=== PATIENT | female | born 1940 | race Caucasian/White ===

== ENCOUNTER 2022-01-31 09:39 | Outpatient (CLI) | payer MEDICARE, OTHER ==
--- NOTE | 2022-01-31 13:59 | DEXA Report ---
PROCEDURE: Dexa Spine and/or Hip INDICATIONS: POST MENOPAUSAL TECHNIQUE: Dual energy x-ray absorptiometry (DXA) was performed on a [employer] System. Regions measur ed are the AP Spine, femoral neck, and if needed forearm. COMPARISON: None. FINDINGS: Lumbar Spine: Bone Mineral Density 1.025 g/cm/cm,T score -1.3, osteopenia Right Femoral Neck: Bone Mineral Density 0.695 g/cm/cm, T score -2.5, osteopenia Right Hip: Bone Mineral Density 0.708 g/cm/cm,T score -2.4, to be near IMPRESSION: Osteoporosis on the basis of left femoral neck bone mineral density. Patients with diagnosis of osteoporosis or osteopenia should have regular bone mineral density assess ment. For those eligible for Medicare, routine testing is allowed once every 2 years. Testing frequ ency can be increased for patients who have rapidly progressing disease or for those who are receivin g medical therapy to restore bone mass. Reviewed by: Soham Mi MD on 01/31/2022 12:58 PM [facility] Approved by: Soham Mi MD on 01/31/2022 12:58 PM [facility] Station ID: [id number]
== END 2022-01-31 09:40 | disposition home or self-care (01) ==
LOC: DI 09:39
PROVIDERS: ATTEND Internal Medicine
DX: M81.0 Age-related osteoporosis without current pathological fracture (principal)

== ENCOUNTER 2022-03-29 17:28 | Outpatient (CLI) | payer MEDICARE, OTHER | END 2022-03-29 17:29 | disposition critical access hospital (66) | LOC: EMS 17:28 | DX: R42 Dizziness and giddiness (principal); R55 Syncope and collapse; R56.9 Unspecified convulsions | CPT/HCPCS: A0425; A0429 ==

== ENCOUNTER 2022-03-29 17:54 | Emergency (ER) | payer MEDICARE, OTHER ==
[2022-03-29 18:14] LABS: BASOPHILS # (AUTO) 0.1 10^3/uL (0.0-0.1); EOSINOPHILS # (AUTO) 0.2 10^3/uL (0.0-0.7); EOSINOPHILS % (AUTO) 3.8 %; HCT - HEMATOCRIT 32.4 % (37.0-47.0); LYMPHOCYTES # (AUTO) 1.6 10^3/uL (1.5-3.5); LYMPHOCYTES % (AUTO) 25.9 %; MEAN CORPUSCULAR HEMOGLOBIN 28.3 pg (27.0-31.0); MEAN CORPUSCULAR HGB CONC 30.9 g/dL (32.0-36.0); MEAN CORPUSCULAR VOLUME 91.8 fL (81.0-99.0); MEAN PLATELET VOLUME 9.9 fL (7.9-10.8); MONOCYTES # (AUTO) 0.6 10^3/uL (0.0-1.0); MONOCYTES % (AUTO) 9.4 %; NEUTROPHILS # (AUTO) 3.7 10^3/uL (1.5-6.6); NEUTROPHILS % (AUTO) 59.6 %; PLT - PLATELET COUNT 233 10^3/uL (130-450); RED BLOOD COUNT 3.53 10^6/uL (4.20-5.40); RED CELL DISTRIBUTION WIDTH 13.2 % (12.0-15.0); WHITE BLOOD COUNT 6.3 x10^3/uL (4.8-10.8)
--- NOTE | 2022-03-29 18:16 | ED Physician Documentation ---
History of Present Illness - Stated complaint Stated Complaint: DIZZINESS/NEAR SYNCOPE - Chief complaint Chief Complaint: Neuro - Additonal information Additional information: Patient is a poor historian. History is provided from EMS at the scene. 81-year-old female who has a previous history of Mnire's disease, congestive heart heart failure, hyperthyroidism and depression presents to the emergency department for evaluation of a near syncopal episode. Patient reports that for much of the last week she has had a cough which she describes as productive. She was taking her Pomeranian's out for a walk when she began to feel faint, lightheaded and dizzy. She nearly collapsed. Patient denies that she was having chest pain or shortness of air The patient does live at [facility] and staff reported that the patient was alert but began having jerking movements of both her upper extremities that were described as convulsions. Patient states that she has had these movements in the past but denies a seizure history. For EMS the patient was alert and oriented x4. Nonfocal. Blood sugar was 86 on scene. Normal sinus rhythm. And reviewed the patient's medications she does not appear to be anticoagulated. Ancillary history is obtained from the patient's daughter and son-in-law at the bedside. They report that anytime she has had near syncope and these convulsion like shakes have been associated with urinary tract infections though the patient denies any symptoms of such. Review of Systems Constitutional: denies: Fever, Chills Cardiac: denies: Chest pain / pressure, Palpitations Respiratory: reports: Reviewed and negative : reports: Reviewed and negative Skin: reports: Reviewed and negative Neurologic: reports: Near syncope. 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 - Present Medications Home Medications: Ambulatory Orders Medication Instructions Recorded Confirmed Acetaminophen [Acetaminophen Extra 1,000 mg PO Q6HR PRN 03/29/22 03/29/22 Strength] Atorvastatin Calcium 40 mg PO HS 03/29/22 03/29/22 Cefpodoxime Proxetil [Vantin] 100 mg PO Q12H #14 tablet 03/29/22 Furosemide [Lasix] 20 mg PO BID 03/29/22 03/29/22 Levothyroxine [Synthroid] 75 mcg PO QDAC 03/29/22 03/29/22 Losartan Potassium 25 mg PO DAILY 03/29/22 03/29/22 Melatonin/Pyridoxine [Melatonin 5 1 each PO HS 03/29/22 03/29/22 mg Tablet] Tizanidine HCl 4 mg PO TID PRN 03/29/22 03/29/22 Venlafaxine HCl [Effexor Xr] 150 mg PO DAILY 03/29/22 03/29/22 - Allergies Allergies/Adverse Reactions: Allergies Allergy/AdvReac Type Severity Reaction Status Date / Time felodipine Allergy Hives Verified 03/29/22 18:21 Penicillins Allergy Hives Verified 03/29/22 18:21 sulfamethoxazole Allergy Hives Verified 03/29/22 18:21 [From Bactrim] trimethoprim [From Bactrim] Allergy Hives Verified 03/29/22 18:21 verapamil Allergy Hives Verified 03/29/22 18:21 - Social History Does the pt smoke?: No Smoking Status: Never smoker Does the pt drink ETOH?: No Does the pt have substance abuse?: No PD ED PE NORMAL - General General: Alert and oriented X 3, No acute distress, Well developed/nourished - HEENT HEENT: Atraumatic, Moist mucous membranes - Neck Neck: Supple, no meningeal sign, No adenopathy - Cardiac Cardiac: RRR, No murmur - Respiratory Respiratory: No respiratory distress, Clear bilaterally - Abdomen Abdomen: Normal bowel sounds, Soft - Derm Derm: Normal color, Warm and dry, No rash - Extremities Extremities: No deformity, No tenderness to palpate, Normal ROM s pain - Neuro Neuro: Alert and oriented X 3, 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 She was awake during this.) Eye Opening: Spontaneous Motor: Obeys Commands Verbal: Oriented GCS Score: 15 Results - Vitals Vitals: Vital Signs - 24 hr 03/29/22 03/29/22 03/29/22 18:06 18:17 19:01 Temperature 37.1 C Heart Rate 66 65 Heart Rate [ 90 Sitting] Heart Rate [ 92 Standing] Heart Rate [ 88 Supine] Respiratory 15 15 Rate Blood Pressure 158/80 H 158/80 H Blood Pressure 182/85 H [Sitting] Blood Pressure 180/88 H [Standing] Blood Pressure 144/71 H [Supine] O2 Saturation 100 100 Oxygen O2 Source Room air - EKG (time done) 1803 Rate: Rate (enter#) (71) Rhythm: NSR [place]: Normal Intervals: Normal [place] QRS: Normal Ischemia: Normal ST segments Compare to prior EKG: Old EKG unavailable Computer interpretation: Agree with computer - Labs Labs: Laboratory Tests 03/29/22 03/29/22 03/29/22 18:08 18:08 18:08 WBC 6.3 RBC 3.53 L Hgb 10.0 L Hct 32.4 L MCV 91.8 MCH 28.3 MCHC 30.9 L RDW 13.2 Plt Count 233 MPV 9.9 Neut # (Auto) 3.7 Lymph # (Auto) 1.6 [place] # (Auto) 0.6 Eos # (Auto) 0.2 Baso # (Auto) 0.1 Absolute Nucleated RBC 0.00 Nucleated RBC % 0.0 Sodium 140 Potassium 3.7 Chloride 105 Carbon Dioxide 25 Anion Gap 10.0 BUN 27 H Creatinine 1.0 Estimated GFR (MDRD) 53 L Glucose 87 Calcium 9.0 Total Bilirubin 0.6 AST 19 ALT 15 Alkaline Phosphatase 74 Troponin I High Sens 3.0 B-Natriuretic Peptide Total Protein 7.0 Albumin 3.7 Globulin 3.3 Albumin/Globulin Ratio 1.1 Lipase 44 TSH Free T4 Urine Color Urine Clarity Urine pH Ur Specific [place] Urine Protein Urine Glucose (UA) Urine Ketones Urine Occult Blood Urine Nitrite Urine Bilirubin Urine Urobilinogen Ur Leukocyte Esterase Urine RBC Urine WBC Ur Squamous Epith Cells Urine Bacteria Ur Microscopic Review Urine Culture Comments Nasal Adenovirus (PCR) Nasal B. parapertussis DNA (PCR) Nasal Coronavir 229E PCR Nasal Coronavir HKU1 PCR Nasal Coronavir NL63 PCR Nasal Coronavir OC43 PCR Nasal Enterovir/Rhinovir PCR Nasal Influenza B PCR Nasal Influenza A PCR Nasal Parainfluen 1 PCR Nasal Parainfluen 2 PCR Nasal Parainfluen 3 PCR Nasal Parainfluen 4 PCR Nasal RSV (PCR) Nasal B.pertussis DNA PCR Nasal C.pneumoniae (PCR) [place] Human Metapneumo PCR Nasal M.pneumoniae (PCR) Nasal SARS-CoV-2 (PCR) 03/29/22 03/29/22 03/29/22 18:08 18:08 18:24 WBC RBC Hgb Hct MCV MCH MCHC RDW Plt Count MPV Neut # (Auto) Lymph # (Auto) [place] # (Auto) Eos # (Auto) Baso # (Auto) Absolute Nucleated RBC Nucleated RBC % Sodium Potassium Chloride Carbon Dioxide Anion Gap BUN Creatinine Estimated GFR (MDRD) Glucose Calcium Total Bilirubin AST ALT Alkaline Phosphatase Troponin I High Sens B-Natriuretic Peptide 89 Total Protein Albumin Globulin Albumin/Globulin Ratio Lipase TSH 3.20 Free T4 0.95 Urine Color Urine Clarity Urine pH Ur Specific [place] Urine Protein Urine Glucose (UA) Urine Ketones Urine Occult Blood Urine Nitrite Urine Bilirubin Urine Urobilinogen Ur Leukocyte Esterase Urine RBC Urine WBC Ur Squamous Epith Cells Urine Bacteria Ur Microscopic Review Urine Culture Comments Nasal Adenovirus (PCR) NOT DETECTED Nasal B. parapertussis DNA (PCR) NOT DETECTED Nasal Coronavir 229E PCR NOT DETECTED Nasal Coronavir HKU1 PCR NOT DETECTED Nasal Coronavir NL63 PCR NOT DETECTED Nasal Coronavir OC43 PCR NOT DETECTED Nasal Enterovir/Rhinovir PCR NOT DETECTED Nasal Influenza B PCR NOT DETECTED Nasal Influenza A PCR NOT DETECTED Nasal Parainfluen 1 PCR NOT DETECTED Nasal Parainfluen 2 PCR NOT DETECTED Nasal Parainfluen 3 PCR NOT DETECTED Nasal Parainfluen 4 PCR NOT DETECTED Nasal RSV (PCR) NOT DETECTED Nasal B.pertussis DNA PCR NOT DETECTED Nasal C.pneumoniae (PCR) NOT DETECTED Me[place]ia Human Metapneumo PCR NOT DETECTED Nasal M.pneumoniae (PCR) NOT DETECTED Nasal SARS-CoV-2 (PCR) NOT DETECTED 03/29/22 19:03 WBC RBC Hgb Hct MCV MCH MCHC RDW Plt Count MPV Neut # (Auto) Lymph # (Auto) [place] # (Auto) Eos # (Auto) Baso # (Auto) Absolute Nucleated RBC Nucleated RBC % Sodium Potassium Chloride Carbon Dioxide Anion Gap BUN Creatinine Estimated GFR (MDRD) Glucose Calcium Total Bilirubin AST ALT Alkaline Phosphatase Troponin I High Sens B-Natriuretic Peptide Total Protein Albumin Globulin Albumin/Globulin Ratio Lipase TSH Free T4 Urine Color YELLOW Urine Clarity CLEAR Urine pH 6.5 Ur Specific [place] 1.010 Urine Protein NEGATIVE Urine Glucose (UA) NEGATIVE Urine Ketones NEGATIVE Urine Occult Blood NEGATIVE Urine Nitrite NEGATIVE Urine Bilirubin NEGATIVE Urine Urobilinogen 0.2 (NORMAL) Ur Leukocyte Esterase MODERATE H Urine RBC 0-5 Urine WBC 11-25 H Ur Squamous Epith Cells FEW Squamous Urine Bacteria Few Ur Microscopic Review INDICATED Urine Culture Comments INDICATED Nasal Adenovirus (PCR) Nasal B. parapertussis DNA (PCR) Nasal Coronavir 229E PCR Nasal Coronavir HKU1 PCR Nasal Coronavir NL63 PCR Nasal Coronavir OC43 PCR Nasal Enterovir/Rhinovir PCR Nasal Influenza B PCR Nasal Influenza A PCR Nasal Parainfluen 1 PCR Nasal Parainfluen 2 PCR Nasal Parainfluen 3 PCR Nasal Parainfluen 4 PCR Nasal RSV (PCR) Nasal B.pertussis DNA PCR Nasal C.pneumoniae (PCR) [place]ia Human Metapneumo PCR Nasal M.pneumoniae (PCR) Nasal SARS-CoV-2 (PCR) - Rads (name of study) cxr Radiology: Final report received (No acute cardiopulmonary finding) PD Medical Decision Making - ED course Complexity details: reviewed results, re-evaluated patient, considered differential, d/w patient, d/w family ED course: 81-year-old female presents to the emergency department for evaluation of a near syncopal episode that occurred after taking her dogs for a walk. When she was at her care facility she began to feel as though she would faint. She did sit down and did not lose consciousness but then she began to have a brief period of awake jerking movements of her upper arms. The patient and her son-in-law report to me that she has had these in the past with urinary tract infections. Here in the emergency department the patient presents very well. She has no focal deficits. We did obtain an EKG which was nonischemic. We also obtained a CBC, electrolytes and a troponin that were all essentially unremarkable. Here in the emergency department the patient has been able to ambulate steadily in the halls without syncope. Her orthostatic blood pressures are negative. We did obtain a urinalysis which is frankly suggestive of infection. A culture is pending but in the interim she will be started on Vantin. This prescription will be sent to the [facility] in [place]. At this time I suspect the cause of her symptoms is a simple cystitis that would be an atypical presentation for such. However clinically the patient does not appear to be having a stroke, acute coronary syndrome, neither does she have an acute abdomen. At this time she is discharged home in stable condition Departure - Departure Disposition: 01 Home, Self Care Clinical Impression: Near syncope Condition: Stable Record reviewed to determine appropriate education?: Yes Prescriptions: Cefpodoxime Proxetil [Vantin] 100 mg PO Q12H #14 tablet Comments: Mary came to the emergency department because at her care facility she had a near fainting episode. This was followed by a brief period of observed shaking in which she remained awake. Here in the ER she does not appear to be having any seizures. She also does not appear to be having any symptoms consistent with a stroke. Because of the near fainting episode we did obtain an EKG that showed no findings to suggest a heart attack. Her labs are all essentially normal. You had discussed with us that in the past when she has had the similar symptoms its been due to a urinary tract infection. Though she does not have the typical symptoms of urinary tract infection such as fevers, urinary urgency or frequency her urine today does suggest infection and therefore we will start her on a short course of antibiotics. Her first dose of antibiotic was given tonight here in the emergency department. This is called Vantin also known as cefpodoxime. It should be given to her twice daily for the next week. This prescription has been electronically sent to the [facility] in [place]. Please discuss this ED visit with her primary care provider. She should return to the ER if she has worsening symptoms, develops any fevers, has uncontrolled abdominal pain, chest pain or vomiting.
[2022-03-29 18:27] LABS: ALBUMIN 3.7 g/dL (3.2-5.5); ALBUMIN/GLOBULIN RATIO 1.1 (1.0-2.2); BILIRUBIN,TOTAL 0.6 mg/dL (0.2-1.0); POTASSIUM 3.7 mmol/L (3.5-5.0)
--- NOTE | 2022-03-29 18:38 | XRAY Report ---
PROCEDURE: Chest 1 View X-Ray INDICATIONS: Chest Pain TECHNIQUE: One view of the chest was acquired. COMPARISON: None. FINDINGS: Surgical changes and devices: None. Lungs and pleura: No pleural effusions or pneumothorax. Lungs are clear. Mediastinum: Mediastinal contours appear normal. Heart size is normal. Bones and chest wall: No suspicious bony lesions. Overlying soft tissues appear unremarkable. IMPRESSION: No acute cardiopulmonary findings Reviewed by: Kapil Bach MD on 03/29/2022 5:37 PM [place] Approved by: Kapil Bach MD on 03/29/2022 5:37 PM [place] Station ID: [id number]
[2022-03-29 18:58] LABS: THYROID STIMULATING HORMONE 3.2 uIU/mL (0.34-5.60)
[2022-03-29 19:00] LABS: FREE T4 (FREE THYROXINE) 0.95 ng/dL (0.58-1.64)
[2022-03-29 19:21] LABS: BILIRUBIN,URINE NEGATIVE (NEGATIVE); GLUCOSE, URINE (UA) NEGATIVE (NEGATIVE); KETONES,URINE (UA) NEGATIVE (NEGATIVE); LEUKOCYTE ESTERASE, URINE MODERATE (NEGATIVE); NITRITE,URINE NEGATIVE (NEGATIVE); OCCULT BLOOD,URINE NEGATIVE (NEGATIVE); PH,URINE 6.5 PH (5.0-7.5); PROTEIN,URINE NEGATIVE (NEGATIVE); UROBILINOGEN,URINE 0.2 (NORMAL) E.U./dL (NORMAL)
[2022-03-29 19:23] LABS: CLARITY,URINE CLEAR (CLEAR)
[2022-03-29 19:31] LABS: B. PARAPERTUSSIS- RESP PCR PAN NOT DETECTED; B. PERTUSSIS- RESP PCR PANEL NOT DETECTED; C. PNEUMONIAE- RESP PCR PANEL NOT DETECTED; CORONAVIRUS 229E-RESP PCR NOT DETECTED; CORONAVIRUS HKU1-RESP PCR NOT DETECTED; CORONAVIRUS NL63-RESP PCR NOT DETECTED; CORONAVIRUS OC43-RESP PCR NOT DETECTED; HUMAN METAPNEUMOVIRUS NOT DETECTED; INFLUENZA A- RESP PCR PANEL NOT DETECTED; INFLUENZA B - RESP PCR PANEL NOT DETECTED; M. PNEUMONIAE- RESP PCR PANEL NOT DETECTED; PARAINFLUENZA VIRUS 1 NOT DETECTED; PARAINFLUENZA VIRUS 2 NOT DETECTED; PARAINFLUENZA VIRUS 3 NOT DETECTED; PARAINFLUENZA VIRUS 4 NOT DETECTED; RHINOVIRUS/ENTEROVIRUS NOT DETECTED; RSV- RESP PCR PANEL NOT DETECTED; SARS-CoV-2 -RESP PCR PANEL NOT DETECTED
[2022-03-29 19:31] LABS: BACTERIA,URINE Few /HPF (None Seen); RBC,URINE 0-5 /HPF (0-5); SQUAMOUS EPITHELIAL CELL,UR FEW Squamous (<= Few)
[2022-03-29] MEDS ORDERED: CEFPODOXIME PROXETIL 100 MG TABLET PO STA (19:44)
[2022-03-29 20:07] VITALS: BP 153/81
== END 2022-03-29 20:24 | disposition home or self-care (01) ==
LOC: EDUNIT# → ED 17:54
DX: R55 Syncope and collapse (principal); Z20.822 Contact with and (suspected) exposure to COVID-19
CPT/HCPCS: 36415; 71045; 80053; 81001; 83690; 83880; 84439; 84443; 84484; 85025; 87086; 87633; 93005; 99284; A9270; 81003

== ENCOUNTER 2022-04-15 10:52 | Outpatient (CLI) | payer MEDICARE, OTHER | END 2022-04-15 23:59 | disposition critical access hospital (66) | LOC: EMS 10:52 | DX: R06.00 Dyspnea, unspecified (principal); R07.9 Chest pain, unspecified; R53.1 Weakness; R19.7 Diarrhea, unspecified | CPT/HCPCS: A0425; A0429 ==

== ENCOUNTER 2022-04-15 11:19 | Emergency (ER) | payer MEDICARE, OTHER ==
[2022-04-15 11:54] LABS: BASOPHILS # (AUTO) 0.1 10^3/uL (0.0-0.1); BASOPHILS % (AUTO) 0.9 %; EOSINOPHILS # (AUTO) 0.2 10^3/uL (0.0-0.7); EOSINOPHILS % (AUTO) 3.1 %; HCT - HEMATOCRIT 31.8 % (37.0-47.0); HGB - HEMOGLOBIN 9.4 g/dL (12.0-16.0); LYMPHOCYTES # (AUTO) 1.1 10^3/uL (1.5-3.5); LYMPHOCYTES % (AUTO) 18.2 %; MEAN CORPUSCULAR HEMOGLOBIN 27.7 pg (27.0-31.0); MEAN CORPUSCULAR HGB CONC 29.6 g/dL (32.0-36.0); MEAN CORPUSCULAR VOLUME 93.8 fL (81.0-99.0); MEAN PLATELET VOLUME 10.4 fL (7.9-10.8); MONOCYTES # (AUTO) 0.6 10^3/uL (0.0-1.0); MONOCYTES % (AUTO) 9.4 %; NEUTROPHILS % (AUTO) 68.2 %; PLT - PLATELET COUNT 259 10^3/uL (130-450); RED BLOOD COUNT 3.39 10^6/uL (4.20-5.40); RED CELL DISTRIBUTION WIDTH 13.2 % (12.0-15.0); WHITE BLOOD COUNT 5.8 x10^3/uL (4.8-10.8)
[2022-04-15 12:05] LABS: ALBUMIN 3.7 g/dL (3.2-5.5); ALBUMIN/GLOBULIN RATIO 1.2 (1.0-2.2); BILIRUBIN,TOTAL 0.6 mg/dL (0.2-1.0); CALCIUM 9.1 mg/dL (8.5-10.3); TOTAL PROTEIN 6.7 g/dL (6.7-8.2)
[2022-04-15 12:40] LABS: BILIRUBIN,URINE NEGATIVE (NEGATIVE); GLUCOSE, URINE (UA) NEGATIVE (NEGATIVE); KETONES,URINE (UA) NEGATIVE (NEGATIVE); LEUKOCYTE ESTERASE, URINE NEGATIVE (NEGATIVE); NITRITE,URINE NEGATIVE (NEGATIVE); OCCULT BLOOD,URINE NEGATIVE (NEGATIVE); PH,URINE 6.5 PH (5.0-7.5); PROTEIN,URINE NEGATIVE (NEGATIVE); UROBILINOGEN,URINE 0.2 (NORMAL) E.U./dL (NORMAL)
[2022-04-15 12:46] LABS: CLARITY,URINE CLEAR (CLEAR)
[2022-04-15] MEDS ORDERED: SODIUM CHLORIDE 0.9% 500 ML IV STA (12:48)
[2022-04-15] MEDS ORDERED: SODIUM CHLORIDE 0.9% 1,000 ML IV STA ×2 (12:48)
--- NOTE | 2022-04-15 13:03 | ED Physician Documentation ---
History of Present Illness - Stated complaint Stated Complaint: FEM - Chief complaint Chief Complaint: General - History obtained from History obtained from: Patient, EMS - History of Present Illness Timing: Today Pain level max: 2 Pain level now: 0 - Additonal information Additional information: 81-year-old female presents to the emergency department stating that she had chest pain earlier this morning at around 6 AM. She states that she felt weak and had shortness of breath. She states that her right arm hurt but her right arm always hurts. It did not hurt anymore than usual. She states that it lasted for about 15 to 20 minutes. She states that she has felt normal since that time. Currently is fully asymptomatic. Nothing makes it better or worse. She did have diarrhea 2 days ago, states none now. She was on antibiotics about 2 weeks ago for UTI. No fever. No chills. Has a history of congestive heart failure. 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 - Present Medications Home Medications: Ambulatory Orders Medication Instructions Recorded Confirmed Acetaminophen [Acetaminophen Extra 1,000 mg PO Q6HR PRN 03/29/22 03/29/22 Strength] Atorvastatin Calcium 40 mg PO HS 03/29/22 03/29/22 Cefpodoxime Proxetil [Vantin] 100 mg PO Q12H #14 tablet 03/29/22 Furosemide [Lasix] 20 mg PO BID 03/29/22 03/29/22 Levothyroxine [Synthroid] 75 mcg PO QDAC 03/29/22 03/29/22 Losartan Potassium 25 mg PO DAILY 03/29/22 03/29/22 Melatonin/Pyridoxine [Melatonin 5 1 each PO HS 03/29/22 03/29/22 mg Tablet] Tizanidine HCl 4 mg PO TID PRN 03/29/22 03/29/22 Venlafaxine HCl [Effexor Xr] 150 mg PO DAILY 03/29/22 03/29/22 - Allergies Allergies/Adverse Reactions: Allergies Allergy/AdvReac Type Severity Reaction Status Date / Time felodipine Allergy Hives Verified 04/15/22 11:27 Penicillins Allergy Hives Verified 04/15/22 11:27 sulfamethoxazole Allergy Hives Verified 04/15/22 11:27 [From Bactrim] trimethoprim [From Bactrim] Allergy Hives Verified 04/15/22 11:27 verapamil Allergy Hives Verified 04/15/22 11:27 - Social History Does the pt smoke?: No Smoking Status: Never smoker Does the pt drink ETOH?: No Does the pt have substance abuse?: No PD ED PE NORMAL - Vitals Vital signs reviewed: Yes - General General: Alert and oriented X 3, No acute distress - HEENT HEENT: Moist mucous membranes - Neck Neck: Supple, no meningeal sign - Cardiac Cardiac: RRR, Strong equal pulses - Respiratory Respiratory: No respiratory distress, Clear bilaterally - Abdomen Abdomen: Soft, Non tender, Non distended - Back Back: No spinal TTP - Derm Derm: Warm and dry - Extremities Extremities: No edema, No calf tenderness / cord - Neuro Neuro: Alert and oriented X 3 Results - Vitals Vitals: Vital Signs - 24 hr 04/15/22 04/15/22 04/15/22 11:23 11:49 12:48 Temperature 36.7 C Heart Rate 68 63 70 Respiratory 18 22 18 Rate Blood Pressure 156/83 H 139/79 H 141/84 H O2 Saturation 99 98 99 04/15/22 15:11 Temperature Heart Rate 68 Respiratory 20 Rate Blood Pressure 147/78 H O2 Saturation 97 Oxygen O2 Source Room air - EKG (time done) 1300 Rate: Rate (enter#) (64) Rhythm: NSR [place]: Normal Intervals: Normal [place] QRS: Normal Ischemia: Normal ST segments - Labs Labs: Laboratory Tests 04/15/22 04/15/22 04/15/22 11:47 11:47 11:47 WBC 5.8 RBC 3.39 L Hgb 9.4 L Hct 31.8 L MCV 93.8 MCH 27.7 MCHC 29.6 L RDW 13.2 Plt Count 259 MPV 10.4 Neut # (Auto) 4.0 Lymph # (Auto) 1.1 L [place] # (Auto) 0.6 Eos # (Auto) 0.2 Baso # (Auto) 0.1 Absolute Nucleated RBC 0.00 Nucleated RBC % 0.0 Sodium 141 Potassium 4.0 Chloride 104 Carbon Dioxide 28 Anion Gap 9.0 BUN 22 H Creatinine 1.0 Estimated GFR (MDRD) 53 L Glucose 89 Calcium 9.1 Total Bilirubin 0.6 AST 18 ALT 12 Alkaline Phosphatase 88 Troponin I High Sens 3.4 B-Natriuretic Peptide Total Protein 6.7 Albumin 3.7 Globulin 3.0 Albumin/Globulin Ratio 1.2 Lipase 41 Urine Color Urine Clarity Urine pH Ur Specific [place] Urine Protein Urine Glucose (UA) Urine Ketones Urine Occult Blood Urine Nitrite Urine Bilirubin Urine Urobilinogen Ur Leukocyte Esterase Ur Microscopic Review Urine Culture Comments 04/15/22 04/15/22 11:47 12:10 WBC RBC Hgb Hct MCV MCH MCHC RDW Plt Count MPV Neut # (Auto) Lymph # (Auto) [place] # (Auto) Eos # (Auto) Baso # (Auto) Absolute Nucleated RBC Nucleated RBC % Sodium Potassium Chloride Carbon Dioxide Anion Gap BUN Creatinine Estimated GFR (MDRD) Glucose Calcium Total Bilirubin AST ALT Alkaline Phosphatase Troponin I High Sens B-Natriuretic Peptide 97 Total Protein Albumin Globulin Albumin/Globulin Ratio Lipase Urine Color YELLOW Urine Clarity CLEAR Urine pH 6.5 Ur Specific [place] <=1.005 Urine Protein NEGATIVE Urine Glucose (UA) NEGATIVE Urine Ketones NEGATIVE Urine Occult Blood NEGATIVE Urine Nitrite NEGATIVE Urine Bilirubin NEGATIVE Urine Urobilinogen 0.2 (NORMAL) Ur Leukocyte Esterase NEGATIVE Ur Microscopic Review NOT INDICATED Urine Culture Comments NOT INDICATED - Rads (name of study) Chest x-ray Radiology: Final report received, See rad report PD Medical Decision Making - ED course Complexity details: reviewed results, re-evaluated patient, considered differential, d/w patient ED course: 81-year-old female presents to the emergency department with chest pain earlier today. Also generalized weakness earlier today. Fully asymptomatic in the emergency department. CBC does show anemia, but this is chronic and unchanged. Her ER abdominal panel is negative other than a mildly elevated BUN. Troponin is negative. BNP is negative. Chest x-ray does not show any acute abnormalities. Urinalysis does not show any infection. She continues to be asymptomatic in the emergency department. Unclear etiology of her earlier symptoms. We will have her follow-up with her doctor for further care. Patient counseled regarding signs and symptoms for which I believe and urgent re- evaluation would be necessary. Patient with good understanding of and agreement to plan and is comfortable going home at this time This document was made in part using voice recognition software. While efforts are made to proofread this document, sound alike and grammatical errors may occur. Departure - Departure Disposition: 01 Home, Self Care Clinical Impression: Chest pain Qualifiers: Chest pain type: unspecified Qualified Code(s): R07.9 - Chest pain, unspecified Dyspnea Qualifiers: Dyspnea type: unspecified Qualified Code(s): R06.00 - Dyspnea, unspecified Condition: Good Instructions: ED Chest Pain Atypical Unkn Cause, ED Dyspnea Shortness of Breath Follow-Up: Zane Boogie MD [Primary Care Provider] - Within 1 week Comments: Your testing does not show any acute abnormalities today. Please follow-up with your doctor for further care. Return if you worsen. Discharge Date/Time: 04/15/22 15:38
--- NOTE | 2022-04-15 13:26 | XRAY Report ---
PROCEDURE: Chest 1 View X-Ray INDICATIONS: chest pain TECHNIQUE: One view of the chest was acquired. COMPARISON: None. FINDINGS: Surgical changes and devices: None. Lungs and pleura: No pleural effusions or pneumothorax. Lungs are clear. Mediastinum: Mediastinal contours appear normal. Heart size is enlarged. Bones and chest wall: No suspicious bony lesions. Overlying soft tissues appear unremarkable. IMPRESSION: No acute cardiopulmonary pathology. Reviewed by: Gustavo Calix MD on 04/15/2022 1:25 PM [facility] Approved by: Gustavo Calix MD on 04/15/2022 1:25 PM [facility] Station ID: [id number]
[2022-04-15 15:13] VITALS: BP 147/78
== END 2022-04-15 15:38 | disposition home or self-care (01) ==
LOC: ED 11:19
DX: R07.9 Chest pain, unspecified (principal); R06.00 Dyspnea, unspecified; Z79.899 Other long term (current) drug therapy; I50.9 Heart failure, unspecified
CPT/HCPCS: 36415; 80053; 81001; 81003; 83690; 83880; 84484; 85025; 87086; 93005; 99283; 99284

== ENCOUNTER 2022-06-05 10:29 | Outpatient (CLI) | payer MEDICARE, OTHER | END 2022-06-05 23:59 | disposition critical access hospital (66) | LOC: EMS 10:29 | DX: R04.0 Epistaxis (principal); K62.5 Hemorrhage of anus and rectum; R42 Dizziness and giddiness | CPT/HCPCS: A0425; A0429 ==

== ENCOUNTER 2022-06-05 10:58 | Emergency (ER) | payer MEDICARE, OTHER ==
[2022-06-05 11:04] VITALS: BP 154/84
[2022-06-05 12:01] LABS: BASOPHILS # (AUTO) 0.1 10^3/uL (0.0-0.1); BASOPHILS % (AUTO) 0.9 %; EOSINOPHILS # (AUTO) 0.3 10^3/uL (0.0-0.7); EOSINOPHILS % (AUTO) 4.4 %; HGB - HEMOGLOBIN 9.2 g/dL (12.0-16.0); LYMPHOCYTES # (AUTO) 1.1 10^3/uL (1.5-3.5); MEAN CORPUSCULAR HEMOGLOBIN 27.7 pg (27.0-31.0); MEAN CORPUSCULAR HGB CONC 29.7 g/dL (32.0-36.0); MEAN CORPUSCULAR VOLUME 93.4 fL (81.0-99.0); MEAN PLATELET VOLUME 11.1 fL (7.9-10.8); MONOCYTES # (AUTO) 0.6 10^3/uL (0.0-1.0); MONOCYTES % (AUTO) 9.9 %; NEUTROPHILS # (AUTO) 3.7 10^3/uL (1.5-6.6); NEUTROPHILS % (AUTO) 64.6 %; PLT - PLATELET COUNT 201 10^3/uL (130-450); RED BLOOD COUNT 3.32 10^6/uL (4.20-5.40); RED CELL DISTRIBUTION WIDTH 13.8 % (12.0-15.0); WHITE BLOOD COUNT 5.7 x10^3/uL (4.8-10.8)
[2022-06-05 12:05] LABS: PT - PROTHROMBIN TIME 11.5 secs (9.9-12.6)
--- NOTE | 2022-06-05 12:07 | ED Physician Documentation ---
History of Present Illness - Stated complaint Stated Complaint: BLEEDING - Chief complaint Chief Complaint: General - History obtained from History obtained from: Patient - History of Present Illness Timing: How many weeks ago (several) Pain level max: 0 Pain level now: 0 - Additonal information Additional information: 81-year-old female presents to the emergency department stating that she has had intermittent nosebleeds for the past several weeks. They seem to resolved after a couple of minutes. Denies any trauma. Is not on blood thinners. Nothing seems to make them better or worse. No fevers, chills or recent illnesses. No dyspnea or syncope. She states she did feel mildly lightheaded earlier today but feels normal now. 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 - Present Medications Home Medications: Ambulatory Orders Medication Instructions Recorded Confirmed Acetaminophen [Acetaminophen Extra 1,000 mg PO Q6HR PRN 03/29/22 03/29/22 Strength] Atorvastatin Calcium 40 mg PO HS 03/29/22 03/29/22 Cefpodoxime Proxetil [Vantin] 100 mg PO Q12H #14 tablet 03/29/22 Furosemide [Lasix] 20 mg PO BID 03/29/22 03/29/22 Levothyroxine [Synthroid] 75 mcg PO QDAC 03/29/22 03/29/22 Losartan Potassium 25 mg PO DAILY 03/29/22 03/29/22 Melatonin/Pyridoxine [Melatonin 5 1 each PO HS 03/29/22 03/29/22 mg Tablet] Tizanidine HCl 4 mg PO TID PRN 03/29/22 03/29/22 Venlafaxine HCl [Effexor Xr] 150 mg PO DAILY 03/29/22 03/29/22 - Allergies Allergies/Adverse Reactions: Allergies Allergy/AdvReac Type Severity Reaction Status Date / Time felodipine Allergy Hives Verified 06/05/22 11:04 Penicillins Allergy Hives Verified 06/05/22 11:04 sulfamethoxazole Allergy Hives Verified 06/05/22 11:04 [From Bactrim] trimethoprim [From Bactrim] Allergy Hives Verified 06/05/22 11:04 verapamil Allergy Hives Verified 06/05/22 11:04 - Social History Does the pt smoke?: No Smoking Status: Never smoker Does the pt drink ETOH?: No Does the pt have substance abuse?: No PD ED PE NORMAL - Vitals Vital signs reviewed: Yes - General General: Alert and oriented X 3, No acute distress - HEENT HEENT: PERRL, Moist mucous membranes, Other (Small amount of dried blood in the left nare. Otherwise normal exam) - Neck Neck: Supple, no meningeal sign - Cardiac Cardiac: RRR, Strong equal pulses - Respiratory Respiratory: No respiratory distress, Clear bilaterally - Derm Derm: Warm and dry - Neuro Neuro: Alert and oriented X 3 Results - Vitals Vitals: Vital Signs - 24 hr 06/05/22 11:01 Temperature 37.2 C Heart Rate 65 Respiratory 20 Rate Blood Pressure 154/84 H O2 Saturation 100 Oxygen O2 Source Room air - Labs Labs: Laboratory Tests 06/05/22 06/05/22 06/05/22 11:54 11:54 11:54 WBC 5.7 RBC 3.32 L Hgb 9.2 L Hct 31.0 L MCV 93.4 MCH 27.7 MCHC 29.7 L RDW 13.8 Plt Count 201 MPV 11.1 H Neut # (Auto) 3.7 Lymph # (Auto) 1.1 L [place] # (Auto) 0.6 Eos # (Auto) 0.3 Baso # (Auto) 0.1 Absolute Nucleated RBC 0.00 Nucleated RBC % 0.0 PT 11.5 INR 1.0 APTT 32.7 Sodium 139 Potassium 3.3 L Chloride 105 Carbon Dioxide 29 Anion Gap 5.0 L BUN 19 Creatinine 0.9 Estimated GFR (MDRD) 60 L Glucose 87 Calcium 8.6 Total Bilirubin 0.3 AST 19 ALT 13 Alkaline Phosphatase 87 Total Protein 6.8 Albumin 3.9 Globulin 2.9 Albumin/Globulin Ratio 1.3 PD Medical Decision Making - ED course Complexity details: reviewed results, considered differential, d/w patient ED course: Patient with recurrent epistaxis. She has chronic anemia, hemoglobin unchanged. She is not on blood thinners. No active bleeding here. Can use Vaseline in the nose to help moisten the area. Recommend that she follow-up with her doctor for further care. Patient counseled regarding signs and symptoms for which I believe and urgent re-evaluation would be necessary. Patient with good understanding of and agreement to plan and is comfortable going home at this time This document was made in part using voice recognition software. While efforts are made to proofread this document, sound alike and grammatical errors may occur. Departure - Departure Disposition: 01 Home, Self Care Clinical Impression: Epistaxis, Chronic anemia Condition: Good Instructions: ED Nosebleed Follow-Up: Zane Boogie MD [Primary Care Provider] - Within 1 week Comments: Please follow-up with your doctor for further care. Please return if you worsen. As we discussed, you can try applying Vaseline inside your nose to help moisten the area. Saline nasal sprays can be used as well. Your blood counts are stable from your prior laboratory testing. Discharge Date/Time: 06/05/22 12:24
[2022-06-05 12:12] LABS: ALBUMIN 3.9 g/dL (3.2-5.5); ALBUMIN/GLOBULIN RATIO 1.3 (1.0-2.2); BILIRUBIN,TOTAL 0.3 mg/dL (0.2-1.0); CALCIUM 8.6 mg/dL (8.5-10.3); CREATININE 0.9 mg/dL (0.4-1.0); POTASSIUM 3.3 mmol/L (3.5-5.0); TOTAL PROTEIN 6.8 g/dL (6.7-8.2)
[2022-06-05 12:13] LABS: PARTIAL THROMBOPLASTIN TIME 32.7 secs (24.9-33.3)
== END 2022-06-05 12:24 | disposition home or self-care (01) ==
LOC: ED 10:58
DX: R04.0 Epistaxis (principal); D64.89 Other specified anemias
CPT/HCPCS: 36415; 80053; 85025; 85610; 85730; 99283

== ENCOUNTER 2022-07-03 12:03 | Outpatient (CLI) | payer MEDICARE, OTHER ==
--- NOTE | 2022-07-03 15:32 | CT Report ---
PROCEDURE: HEAD WO INDICATIONS: SEIZSURE TECHNIQUE: Noncontrast 4.5 mm thick angled axial sections acquired from the foramen magnum to the vertex. For r adiation dose reduction, the following was used: automated exposure control, adjustment of mA and/or kV according to patient size. COMPARISON: None. FINDINGS: Image quality: Excellent. The ventricular system and cortical sulci demonstrate atrophy, consistent for patient's stated age. There are areas of hypodensity in the periventricular and subcortical white matter. There is no acut e intra or extra-axial fluid collection. No acute hemorrhage, mass lesion or midline shift. Brainst em is unremarkable. Globes are symmetrical. Sinuses are aerated. Osseous structures are intact. IMPRESSION: 1. No acute intracranial process. 2. Moderate atrophy and chronic microvascular ischemic changes. Reviewed by: Vianey Carranza MD on 07/03/2022 3:30 PM PDT Approved by: Vianey Carranza MD on 07/03/2022 3:30 PM PDT Station ID: [id number]
== END 2022-07-03 12:04 | disposition home or self-care (01) ==
LOC: DI 12:03
PROVIDERS: ATTEND Internal Medicine
DX: R56.9 Unspecified convulsions (principal); G31.89 Other specified degenerative diseases of nervous system; I67.82 Cerebral ischemia; I50.9 Heart failure, unspecified; I51.7 Cardiomegaly
CPT/HCPCS: 93306

== ENCOUNTER 2022-07-03 12:03 | Outpatient (CLI) | payer MEDICARE, OTHER | END 2022-07-03 12:04 | disposition home or self-care (01) | LOC: DI 12:03 | PROVIDERS: ATTEND Internal Medicine | DX: I50.9 Heart failure, unspecified (principal); I51.7 Cardiomegaly | CPT/HCPCS: 93306 ==

== ENCOUNTER 2022-12-31 13:57 | Outpatient (CLI) | payer MEDICARE, OTHER | END 2022-12-31 13:58 | disposition critical access hospital (66) | LOC: EMS 13:57 | DX: R56.9 Unspecified convulsions (principal) | CPT/HCPCS: A0425; A0429 ==

== ENCOUNTER 2022-12-31 14:27 | Emergency (ER) | payer MEDICARE, OTHER ==
[2022-12-31 15:03] LABS: BASOPHILS % (AUTO) 0.8 %; EOSINOPHILS # (AUTO) 0.2 10^3/uL (0.0-0.7); EOSINOPHILS % (AUTO) 4.2 %; HCT - HEMATOCRIT 26.8 % (37.0-47.0); HGB - HEMOGLOBIN 7.9 g/dL (12.0-16.0); LYMPHOCYTES # (AUTO) 0.9 10^3/uL (1.5-3.5); LYMPHOCYTES % (AUTO) 19.5 %; MEAN CORPUSCULAR HEMOGLOBIN 25.3 pg (27.0-31.0); MEAN CORPUSCULAR HGB CONC 29.5 g/dL (32.0-36.0); MEAN CORPUSCULAR VOLUME 85.9 fL (81.0-99.0); MEAN PLATELET VOLUME 9.7 fL (7.9-10.8); MONOCYTES # (AUTO) 0.5 10^3/uL (0.0-1.0); MONOCYTES % (AUTO) 9.6 %; NEUTROPHILS # (AUTO) 3.1 10^3/uL (1.5-6.6); NEUTROPHILS % (AUTO) 65.7 %; PLT - PLATELET COUNT 236 10^3/uL (130-450); RED BLOOD COUNT 3.12 10^6/uL (4.20-5.40); RED CELL DISTRIBUTION WIDTH 15.9 % (12.0-15.0); WHITE BLOOD COUNT 4.8 x10^3/uL (4.8-10.8)
--- NOTE | 2022-12-31 15:33 | ED Physician Documentation ---
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 Today she states that she had a shaking episode that lasted for a few minutes. She was fully awake and conscious during the entire event. No postictal period. She did receive her COVID and influenza vaccines. Her family apparently called the emergency department prior to her arrival and said that she often has UTIs when she has pseudoseizures. They are requesting she be checked for UTI. Patient has no fever, no chills. No cough. No congestion. No abdominal pain. Did not fall. Did not strike her head. No head, neck, back pain. Patient is fully asymptomatic. Review of Systems Constitutional: denies: Fever, Chills Respiratory: denies: Cough GI: denies: Abdominal Pain, Nausea, Vomiting, Diarrhea : denies: Dysuria, Frequency, Hesitancy Skin: denies: Rash Musculoskeletal: denies: Neck pain, Back pain Neurologic: denies: Focal weakness, Numbness, Confused, Altered mental status, Headache, Head injury, LOC PD PAST MEDICAL HISTORY - Past Medical History Cardiovascular: Congestive heart failure, High cholesterol Neuro: Other (pseudoseizures) Endocrine/Autoimmune: HyPOthyroidism Psych: Depression - Past Surgical History Past Surgical History: Yes Ortho: Knee replacement /VP 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: Hysterectomy - Present Medications Home Medications: Ambulatory Orders Medication Instructions Recorded Confirmed Acetaminophen [Acetaminophen Extra 1,000 mg PO Q6HR PRN 03/29/22 03/29/22 Strength] Atorvastatin Calcium 40 mg PO HS 03/29/22 03/29/22 Cefpodoxime Proxetil [Vantin] 100 mg PO Q12H #14 tablet 03/29/22 Furosemide [Lasix] 20 mg PO BID 03/29/22 03/29/22 Levothyroxine [Synthroid] 75 mcg PO QDAC 03/29/22 03/29/22 Losartan Potassium 25 mg PO DAILY 03/29/22 03/29/22 Melatonin/Pyridoxine [Melatonin 5 1 each PO HS 03/29/22 03/29/22 mg Tablet] Tizanidine HCl 4 mg PO TID PRN 03/29/22 03/29/22 Venlafaxine HCl [Effexor Xr] 150 mg PO DAILY 03/29/22 03/29/22 Cefpodoxime Proxetil [Vantin] 100 mg PO Q12H #10 tablet 12/31/22 - Allergies Allergies/Adverse Reactions: Allergies Allergy/AdvReac Type Severity Reaction Status Date / Time felodipine Allergy Hives Verified 12/31/22 14:39 Penicillins Allergy Hives Verified 12/31/22 14:39 sulfamethoxazole Allergy Hives Verified 12/31/22 14:39 [From Bactrim] trimethoprim [From Bactrim] Allergy Hives Verified 12/31/22 14:39 verapamil Allergy Hives Verified 12/31/22 14:39 - Social History Does the pt smoke?: No Smoking Status: Never smoker Does the pt drink ETOH?: No Does the pt have substance abuse?: No PD ED PE NORMAL - Vitals Vital signs reviewed: Yes - General General: Alert and oriented X 3, No acute distress - HEENT HEENT: Moist mucous membranes - Neck Neck: Supple, no meningeal sign - Cardiac Cardiac: RRR, Strong equal pulses - Respiratory Respiratory: No respiratory distress, Clear bilaterally - Abdomen Abdomen: Soft, Non tender, Non distended - Derm Derm: Warm and dry - Extremities Extremities: No edema, No calf tenderness / cord - Neuro Neuro: Alert and oriented X 3, 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, No motor deficit, No sensory deficit, Normal speech Eye Opening: Spontaneous Motor: Obeys Commands Verbal: Oriented GCS Score: 15 - Psych Psych: Normal mood, Normal affect Results - Vitals Vitals: Vital Signs - 24 hr 12/31/22 12/31/22 12/31/22 14:36 15:04 15:40 Temperature 36.4 C L Heart Rate 64 68 81 Respiratory 18 17 19 Rate Blood Pressure 148/75 H 94/28 L 180/84 H O2 Saturation 98 98 100 12/31/22 12/31/22 16:14 16:38 Temperature 36.5 C Heart Rate 65 71 Respiratory 17 18 Rate Blood Pressure 143/87 H 146/86 H O2 Saturation 97 97 Oxygen O2 Source Room air - Labs Labs: Laboratory Tests 12/31/22 12/31/22 12/31/22 14:55 14:55 15:30 WBC 4.8 RBC 3.12 L Hgb 7.9 L Hct 26.8 L MCV 85.9 MCH 25.3 L MCHC 29.5 L RDW 15.9 H Plt Count 236 MPV 9.7 Neut # (Auto) 3.1 Lymph # (Auto) 0.9 L [place] # (Auto) 0.5 Eos # (Auto) 0.2 Baso # (Auto) 0.0 Absolute Nucleated RBC 0.00 Nucleated RBC % 0.0 Sodium 141 Potassium 3.8 Chloride 106 Carbon Dioxide 31 Anion Gap 4.0 L BUN 23 H Creatinine 1.1 Estimated GFR (MDRD) 48 L Glucose 88 Calcium 8.7 Total Bilirubin 0.3 AST 12 ALT 7 L Alkaline Phosphatase 97 Total Protein 6.5 Albumin 3.8 Globulin 2.7 Albumin/Globulin Ratio 1.4 Lipase 22 Urine Color YELLOW Urine Clarity HAZY Urine pH 6.5 Ur Specific Sullivan <=1.005 Urine Protein NEGATIVE Urine Glucose (UA) NEGATIVE Urine Ketones NEGATIVE Urine Occult Blood NEGATIVE Urine Nitrite NEGATIVE Urine Bilirubin NEGATIVE Urine Urobilinogen 0.2 (NORMAL) Ur Leukocyte Esterase LARGE H Urine RBC 0-5 Urine WBC 11-25 H Ur Squamous Epith Cells FEW Squamous Urine Bacteria Moderate H Ur Microscopic Review INDICATED Urine Culture Comments INDICATED PD Medical Decision Making - ED course Complexity details: reviewed results, re-evaluated patient, considered differential, d/w patient ED course: Patient is asymptomatic in the emergency department has chronic anemia. This is not a significant drop from her baseline. She does have a UTI and we will treat her for this. She is not short of breath. No hypotension. No fevers. No evidence of sepsis. She has known pseudoseizures. She was conscious through the entire event and recalls the entire event. No postictal period. Patient will follow-up with her PCP for further care. Patient counseled regarding signs and symptoms for which I believe and urgent re-evaluation would be necessary. Patient with good understanding of and agreement to plan and is comfortable going home at this time This document was made in part using voice recognition software. While efforts are made to proofread this document, sound alike and grammatical errors may occur. Departure - Departure Disposition: 01 Home, Self Care Clinical Impression: Seizure-like activity, Chronic anemia UTI (urinary tract infection) Qualifiers: Urinary tract infection type: acute cystitis Hematuria presence: without hematuria Qualified Code(s): N30.00 - Acute cystitis without hematuria Condition: Good Instructions: ED UTI Cystitis Female Follow-Up: your,doctor in 1 week [Other] Prescriptions: Cefpodoxime Proxetil [Vantin] 100 mg PO Q12H #10 tablet Comments: Your prescription was sent to [facility] in [place]. Please follow-up with your doctor for further care. Please return if you worsen. You are being treated for UTI today. Forms: PCP List Discharge Date/Time: 12/31/22 17:28
[2022-12-31 15:38] LABS: ALBUMIN 3.8 g/dL (3.2-5.5); ALBUMIN/GLOBULIN RATIO 1.4 (1.0-2.2); BILIRUBIN,TOTAL 0.3 mg/dL (0.2-1.0); CALCIUM 8.7 mg/dL (8.5-10.3); CREATININE 1.1 mg/dL (0.6-1.3); POTASSIUM 3.8 mmol/L (3.5-4.5); TOTAL PROTEIN 6.5 g/dL (6.4-8.9)
[2022-12-31 16:10] LABS: BILIRUBIN,URINE NEGATIVE (NEGATIVE); GLUCOSE, URINE (UA) NEGATIVE (NEGATIVE); KETONES,URINE (UA) NEGATIVE (NEGATIVE); LEUKOCYTE ESTERASE, URINE LARGE (NEGATIVE); NITRITE,URINE NEGATIVE (NEGATIVE); OCCULT BLOOD,URINE NEGATIVE (NEGATIVE); PH,URINE 6.5 PH (5.0-7.5); PROTEIN,URINE NEGATIVE (NEGATIVE); UROBILINOGEN,URINE 0.2 (NORMAL) E.U./dL (NORMAL)
[2022-12-31 16:11] LABS: CLARITY,URINE HAZY (CLEAR)
[2022-12-31 16:18] VITALS: O2SAT 97
[2022-12-31 16:22] LABS: BACTERIA,URINE Moderate /HPF (None Seen); RBC,URINE 0-5 /HPF (0-5); SQUAMOUS EPITHELIAL CELL,UR FEW Squamous (<= Few)
[2022-12-31] MEDS ORDERED: CEFPODOXIME PROXETIL 100 MG TABLET PO STA (16:28)
[2022-12-31 16:45] VITALS: BP 146/86
== END 2022-12-31 17:28 | disposition home or self-care (01) ==
LOC: EDUNIT# → ED 14:27
DX: N30.00 Acute cystitis without hematuria (principal); R56.9 Unspecified convulsions; D64.9 Anemia, unspecified; I50.9 Heart failure, unspecified; E78.00 Pure hypercholesterolemia, unspecified; E03.9 Hypothyroidism, unspecified; Z87.440 Personal history of urinary (tract) infections; Z79.899 Other long term (current) drug therapy
CPT/HCPCS: 36415; 80053; 81001; 83690; 85025; 87086; 87181; 99283; 99284; A9270; 81003

== ENCOUNTER 2023-02-10 08:57 | Outpatient (CLI) | payer MEDICARE, OTHER | END 2023-02-10 08:58 | disposition critical access hospital (66) | LOC: EMS 08:57 | DX: R42 Dizziness and giddiness (principal); R55 Syncope and collapse; R11.0 Nausea; I95.9 Hypotension, unspecified | CPT/HCPCS: A0425; A0427 ==

== ENCOUNTER 2023-02-10 09:21 | Emergency (ER) | payer MEDICARE, OTHER ==
--- NOTE | 2023-02-10 09:34 | ED Physician Documentation ---
PD HPI SYNCOPE - Stated complaint Stated Complaint: DIZZINESS - History obtained from History obtained from: Patient, EMS - History of Present Illness Witnessed: Witnessed Timing - onset: How many hours ago Duration: Seconds Preceding symptoms: Light headed, Generalized weakness. No: Headache, Chest pain Associated symptoms: Other (feeling of aches, malaise and some cough for 1-2 days. Today with lightheaded feeling after breakfast. Witnessed to have brief near syncope/syncope.). No: Headache, Chest pain, Abdominal pain Contributing factors: Other (recent URI symptoms for a day or so.). No: Recent med change, Decreased PO intake Injury occurred: No: Fell, Head injury Review of Systems Constitutional: reports: Chills, Myalgias. denies: Fever Nose: reports: Congestion Throat: denies: Sore throat Cardiac: denies: Chest pain / pressure Respiratory: reports: Cough GI: denies: Abdominal Pain PD PAST MEDICAL HISTORY - Past Medical History Cardiovascular: Congestive heart failure, High cholesterol Neuro: Other (pseudoseizures) Endocrine/Autoimmune: HyPOthyroidism Psych: Depression - Past Surgical History Past Surgical History: Yes Ortho: Knee replacement /[employer]: Hysterectomy - Present Medications Home Medications: Ambulatory Orders Medication Instructions Recorded Confirmed Acetaminophen [Acetaminophen Extra 1,000 mg PO Q6HR PRN 03/29/22 03/29/22 Strength] Atorvastatin Calcium 40 mg PO HS 03/29/22 03/29/22 Cefpodoxime Proxetil [Vantin] 100 mg PO Q12H #14 tablet 03/29/22 Furosemide [Lasix] 20 mg PO BID 03/29/22 03/29/22 Levothyroxine [Synthroid] 75 mcg PO QDAC 03/29/22 03/29/22 Losartan Potassium 25 mg PO DAILY 03/29/22 03/29/22 Melatonin/Pyridoxine [Melatonin 5 1 each PO HS 03/29/22 03/29/22 mg Tablet] Tizanidine HCl 4 mg PO TID PRN 03/29/22 03/29/22 Venlafaxine HCl [Effexor Xr] 150 mg PO DAILY 03/29/22 03/29/22 Cefpodoxime Proxetil [Vantin] 100 mg PO Q12H #10 tablet 12/31/22 - Allergies Allergies/Adverse Reactions: Allergies Allergy/AdvReac Type Severity Reaction Status Date / Time felodipine Allergy Hives Verified 12/31/22 14:39 Penicillins Allergy Hives Verified 12/31/22 14:39 sulfamethoxazole Allergy Hives Verified 12/31/22 14:39 [From Bactrim] trimethoprim [From Bactrim] Allergy Hives Verified 12/31/22 14:39 verapamil Allergy Hives Verified 12/31/22 14:39 - Social History Does the pt smoke?: No Smoking Status: Never smoker Does the pt drink ETOH?: No Does the pt have substance abuse?: No PD ED PE NORMAL - Vitals Vital signs reviewed: Yes - General General: Alert and oriented X 3, No acute distress, Well developed/nourished - HEENT HEENT: Pharynx benign - Neck Neck: Supple, no meningeal sign, No adenopathy - Cardiac Cardiac: RRR, No murmur - Respiratory Respiratory: Clear bilaterally - Abdomen Abdomen: Soft, Non tender - Derm Derm: Normal color, Warm and dry - Extremities Extremities: Normal ROM s pain, No edema, No calf tenderness / cord - Neuro Neuro: Alert and oriented X 3, No motor deficit, Normal speech Results - Vitals Vitals: Vital Signs - 24 hr 02/10/23 02/10/23 02/10/23 09:28 10:02 10:55 Temperature 36.7 C Heart Rate 65 62 64 Respiratory 18 18 16 Rate Blood Pressure 102/58 L 99/54 L 107/60 O2 Saturation 98 96 95 02/10/23 12:30 Temperature Heart Rate 68 Respiratory 16 Rate Blood Pressure 117/75 O2 Saturation 96 Oxygen O2 Source Room air - EKG (time done) 09:30 EKG releavant findings:: EKG personally interpreted by author of this note. Relevant findings are: Rate: Rate (enter#) (64) Rhythm: NSR [place]: Normal Intervals: Normal DC QRS: Normal Ischemia: Normal ST segments. No: ST elevation c/w ischemia, ST depression - Labs Labs: Laboratory Tests 02/10/23 02/10/23 02/10/23 09:49 09:49 09:58 WBC 4.8 RBC 2.92 L Hgb 7.1 L Hct 24.3 L MCV 83.2 MCH 24.3 L MCHC 29.2 L RDW 15.7 H Plt Count 230 MPV 9.7 Neut # (Auto) 2.9 Lymph # (Auto) 1.0 L [place] # (Auto) 0.5 Eos # (Auto) 0.4 Baso # (Auto) 0.1 Absolute Nucleated RBC 0.00 Nucleated RBC % 0.0 Sodium 139 Potassium 3.7 Chloride 106 Carbon Dioxide 30 Anion Gap 3.0 L BUN 20 Creatinine 1.0 Estimated GFR (MDRD) 53 L Glucose 114 H Calcium 8.5 Magnesium 2.0 Total Bilirubin 0.3 AST 11 ALT 7 L Alkaline Phosphatase 97 Troponin I High Sens 2.5 Total Protein 5.8 L Albumin 3.4 Globulin 2.4 Albumin/Globulin Ratio 1.4 Lipase 24 Nasal Adenovirus (PCR) NOT DETECTED Nasal B. parapertussis DNA (PCR) NOT DETECTED Nasal Coronavir 229E PCR NOT DETECTED Nasal Coronavir HKU1 PCR NOT DETECTED Nasal Coronavir NL63 PCR NOT DETECTED Nasal Coronavir OC43 PCR NOT DETECTED Nasal Enterovir/Rhinovir PCR DETECTED A Nasal Influenza B PCR NOT DETECTED Nasal Influenza A PCR NOT DETECTED Nasal Parainfluen 1 PCR NOT DETECTED Nasal Parainfluen 2 PCR NOT DETECTED Nasal Parainfluen 3 PCR NOT DETECTED Nasal Parainfluen 4 PCR NOT DETECTED Nasal RSV (PCR) NOT DETECTED Nasal B.pertussis DNA PCR NOT DETECTED Nasal C.pneumoniae (PCR) NOT DETECTED Mejia Human Metapneumo PCR NOT DETECTED Nasal M.pneumoniae (PCR) NOT DETECTED Nasal SARS-CoV-2 (PCR) NOT DETECTED - Rads (name of study) chest xray Relevant Findings:: Prelim report reviewed, EMP independent interpretation of test (no acute cardiopulmonary abnormality noted. ) PD Medical Decision Making - ED course Complexity details: reviewed results (Hgb 7.1 and previous was 7.9 in Dec, with 9.0 in May. No apparent acute blood loss. Appears iron deficient likely. I think currrent fainting is BP resonse to new viral illness. Feeling okay with IV fluids here. Defer transfusion of blood as not meeting guidleine for it. ), considered differential (has had mild URI symptoms for just 1-2 days. [place]rell lightheaded then fainted Has recovered okay. Noted to have mildly low BP on EMS arrival. Feeling at baseline on arrival. ), d/w patient Departure - Departure Disposition: 01 Home, Self Care Clinical Impression: Syncope Condition: Stable Record reviewed to determine appropriate education?: Yes Instructions: ED Viral Syndrome Comments: Your blood test shows some anemia. Your blood count is close to where it was on the most recent blood test. Close to where it was on the most recent blood test. This certainly contributes to your general level of fatigue and tiredness. I do not see an iron supplement per se in your med list. It would make sense to be on 1. I think your current symptoms of feverish and fatigue and the lightheaded episode this morning are related to a current viral illness. Your no swab test was positive for rhinovirus which is a relatively common virus but can act flulike for sure. Stay well-hydrated. You are likely feel ill to some degree for the next 5 or 6 days anyway. Tylenol every 4-6 hours if needed for fevers or pains. Your vital signs are okay here. You were given some extra fluid. You likely had a brief drop in blood pressure leading to your near fainting/fainting. Knowing that you will likely be ill for the next several days with the rhinovirus., I would suggest holding your losartan blood pressure medicine for the next 5 days. Continue with all your other usual medicines. Follow-up with your primary care if not feeling better over the next week or if you have repeated episodes of the near fainting. Forms: PCP List Discharge Date/Time: 02/10/23 13:05
[2023-02-10] MEDS ORDERED: SODIUM CHLORIDE 0.9% 1,000 ML IV STA (09:35)
--- NOTE | 2023-02-10 09:48 | XRAY Report ---
PROCEDURE: Chest 1 View X-Ray INDICATIONS: chest pain TECHNIQUE: One view of the chest was acquired. COMPARISON: None. FINDINGS: Surgical changes and devices: None. Lungs and pleura: No pleural effusions or pneumothorax. Lungs are clear. Mediastinum: Mediastinal contours appear normal. Heart size is normal. Bones and chest wall: No suspicious bony lesions. Overlying soft tissues appear unremarkable. IMPRESSION: No acute cardiopulmonary process. Reviewed by: Freddie West MD on 02/10/2023 9:47 AM [facility] Approved by: Freddie West MD on 02/10/2023 9:47 AM [facility] Station ID: [id number]
[2023-02-10 10:03] LABS: BASOPHILS # (AUTO) 0.1 10^3/uL (0.0-0.1); EOSINOPHILS # (AUTO) 0.4 10^3/uL (0.0-0.7); EOSINOPHILS % (AUTO) 7.2 %; HCT - HEMATOCRIT 24.3 % (37.0-47.0); HGB - HEMOGLOBIN 7.1 g/dL (12.0-16.0); LYMPHOCYTES % (AUTO) 19.8 %; MEAN CORPUSCULAR HEMOGLOBIN 24.3 pg (27.0-31.0); MEAN CORPUSCULAR HGB CONC 29.2 g/dL (32.0-36.0); MEAN CORPUSCULAR VOLUME 83.2 fL (81.0-99.0); MEAN PLATELET VOLUME 9.7 fL (7.9-10.8); MONOCYTES # (AUTO) 0.5 10^3/uL (0.0-1.0); NEUTROPHILS # (AUTO) 2.9 10^3/uL (1.5-6.6); NEUTROPHILS % (AUTO) 60.6 %; PLT - PLATELET COUNT 230 10^3/uL (130-450); RED BLOOD COUNT 2.92 10^6/uL (4.20-5.40); RED CELL DISTRIBUTION WIDTH 15.7 % (12.0-15.0); WHITE BLOOD COUNT 4.8 x10^3/uL (4.8-10.8)
[2023-02-10 10:15] LABS: ALBUMIN 3.4 g/dL (3.2-5.5); ALBUMIN/GLOBULIN RATIO 1.4 (1.0-2.2); BILIRUBIN,TOTAL 0.3 mg/dL (0.2-1.0); CALCIUM 8.5 mg/dL (8.5-10.3); POTASSIUM 3.7 mmol/L (3.5-4.5); TOTAL PROTEIN 5.8 g/dL (6.4-8.9)
[2023-02-10 10:19] LABS: TROPONIN I HIGH SENSITIVITY 2.5 ng/L (2.3-14.8)
[2023-02-10 11:12] LABS: B. PARAPERTUSSIS- RESP PCR PAN NOT DETECTED; B. PERTUSSIS- RESP PCR PANEL NOT DETECTED; C. PNEUMONIAE- RESP PCR PANEL NOT DETECTED; CORONAVIRUS 229E-RESP PCR NOT DETECTED; CORONAVIRUS HKU1-RESP PCR NOT DETECTED; CORONAVIRUS NL63-RESP PCR NOT DETECTED; CORONAVIRUS OC43-RESP PCR NOT DETECTED; HUMAN METAPNEUMOVIRUS NOT DETECTED; INFLUENZA A- RESP PCR PANEL NOT DETECTED; INFLUENZA B - RESP PCR PANEL NOT DETECTED; M. PNEUMONIAE- RESP PCR PANEL NOT DETECTED; PARAINFLUENZA VIRUS 1 NOT DETECTED; PARAINFLUENZA VIRUS 2 NOT DETECTED; PARAINFLUENZA VIRUS 3 NOT DETECTED; PARAINFLUENZA VIRUS 4 NOT DETECTED; RHINOVIRUS/ENTEROVIRUS DETECTED; RSV- RESP PCR PANEL NOT DETECTED; SARS-CoV-2 -RESP PCR PANEL NOT DETECTED
[2023-02-10 13:22] VITALS: BP 117/75; O2SAT 96
== END 2023-02-10 13:05 | disposition home or self-care (01) ==
LOC: EDUNIT# → ED 09:21
DX: R55 Syncope and collapse (principal); I50.9 Heart failure, unspecified; E03.9 Hypothyroidism, unspecified; Z11.52 Encounter for screening for COVID-19; Z79.899 Other long term (current) drug therapy
CPT/HCPCS: 36415; 80053; 83690; 83735; 84484; 85025; 87633; 93005; 99284

== ENCOUNTER 2023-07-17 07:00 | Outpatient (CLI) | payer MEDICARE, OTHER ==
--- NOTE | 2023-07-17 17:15 | XRAY Report ---
PROCEDURE: Chest 2V INDICATIONS: BRONCHITIS TECHNIQUE: 2 views of the chest were acquired. COMPARISON: 02/10/2023 FINDINGS: Surgical changes and devices: None. Lungs and pleura: Low lung volumes. No dense consolidation or pleural effusion. Mediastinum: Cardiac mediastinal contours are unchanged. Normal heart size Bones and chest wall: Degenerative findings. Age-indeterminate wedging of multiple thoracic vertebra l bodies. IMPRESSION: Low lung volumes. No acute radiographic abnormality. Partially evaluated age-indeterminate wedging of multiple thoracic vertebral bodies. Reviewed by: Eduardo Rabago MD on 07/17/2023 5:14 PM PDT Approved by: Eduardo Rabago MD on 07/17/2023 5:14 PM PDT Station ID: [id number]
== END 2023-07-17 23:59 | disposition home or self-care (01) ==
LOC: DI.S 07:00
PROVIDERS: ATTEND Emergency Medicine
DX: J20.9 Acute bronchitis, unspecified (principal); M48.54XA Collapsed vertebra, not elsewhere classified, thoracic region, initial encounter for fracture